=== PATIENT | female | born 1995 | race Hispanic/Latino ===

== ENCOUNTER 2018-01-31 01:08 | Emergency (ER) | payer OTHER, SELFPAY ==
[2018-01-31] MEDS ORDERED: MORPHINE 4 MG/ML SYR ONE ×2 (01:46→02:20)
[2018-01-31] MEDS ORDERED: ONDANSETRON 4 MG/2 ML VIAL ONE ×2 (01:46→02:20)
[2018-01-31] MEDS ORDERED: NA CHLORIDE 0.9% 1,000 ML ONE (01:46)
[2018-01-31] MEDS ORDERED: CEFTRIAXONE/SWI 1gm 1 GM/10 ML SYR ONE (01:56)
[2018-01-31 02:45] LABS: Absolute Lymphocytes (CBC) 2.5 K/uL (0.7-4.9); Absolute Monocytes 1.4 K/uL (0.1-1.3); Absolute Neutrophil 11.1 K/uL (1.8-8.0); Basophils % 0.3 % (0-1.3); Eosinophils % 0.1 % (0-4.4); Hematocrit 40.5 % (36.0-45.0); Lymphocytes % 16.6 % (15.3-44.8); MCH 27.2 pg (27.0-35.0); MCV 84.1 fL (80-100); MPV 8.6 fL (7.6-11.3); Monocytes % 9.2 % (3.3-12.3); RBC Red Blood Cell Count 4.81 M/uL (3.86-4.86)
[2018-01-31 02:48] LABS: Potassium 3.2 mEq/L (3.6-5.0)
[2018-01-31 02:54] LABS: Albumin 4.3 g/dL (3.2-5.5); Bilirubin Direct 0.2 mg/dL (0-0.2); Bilirubin Total 1.3 mg/dL (0.3-1.2); Protein, Total 8.2 g/dL (6.0-8.3)
--- NOTE | 2018-01-31 03:59 | ER ---
Nurse's Notes [facility] Name: Rolando Emerson Age: 22 yrs Sex: Female : 1995 Arrival Date: 01/31/2018 Time: 01:09 Bed 5 Private MD: Diagnosis: Urinary tract infection, site not specified Presentation: 01/31 01:24 Presenting complaint: Patient states: that she has been having abd pain x 2 days along fc with nausea and vomiting. Denies any diarrhea. Transition of care: patient was not received from another setting of care. Onset of symptoms was January 29, 2018. Care prior to arrival: Medication(s) given: Motrin, last at 1600 yesterday Tylenol, last 2 days ago. 01:24 Method Of Arrival: Ambulatory 01:24 Acuity: AKILA 3 01:28 Initial Sepsis Screen: Does the patient meet any 2 criteria? No. Patient's initial fc sepsis screen is negative. Does the patient have a suspected source of infection? No. Patient's initial sepsis screen is negative. 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 - Social history:: Smoking status: Patient/guardian denies using tobacco, Patient uses alcohol, occasionally. Patient/guardian denies using street drugs, IV drugs, The patient lives with family. - Family history:: not pertinent. - Hospitalizations: : No recent hospitalization is reported. Screenin:27 Abuse screen: Denies threats or abuse. Nutritional screening: No deficits noted. fc Tuberculosis screening: No symptoms or risk factors identified. Fall Risk None identified. Assessment: 01:41 General: Appears in no apparent distress. uncomfortable, Behavior is cooperative, tl2 appropriate for age, anxious. Pain: Complains of pain in right lower quadrant Pain does not radiate. Pain currently is 8 out of 10 on a pain scale. Quality of pain is described as sharp, Is intermittent. Pain: Noted to be guarding, moaning. Neuro: Level of Consciousness is awake, alert, obeys commands, Oriented to person, place, time, situation. Cardiovascular: Denies chest pain. Respiratory: Airway is patent Respiratory effort is even, unlabored, Respiratory pattern is regular, symmetrical. GI: Abdomen is non-distended, obese, Abd is soft Abdomen is tender to palpation in right lower quadrant Reports lower abdominal pain, nausea, vomiting, Patient currently denies diarrhea. : Reports blood in urine. Derm: Skin is pink, warm \T\ dry. 01:57 : Urine is tea colored. tl2 02:38 Reassessment: Patient appears in no apparent distress at this time. Patient and/or tl2 family updated on plan of care and expected duration. Pain level reassessed. Pt is resting quietly, states the second dose of pain medication is working. Awaiting CT scan. 03:52 Reassessment: Patient appears in no apparent distress at this time. Patient and/or tl2 family updated on plan of care and expected duration. Pain level reassessed. Awaiting CT results. 04:18 Reassessment: Patient appears in no apparent distress at this time. Patient and/or tl2 family updated on plan of care and expected duration. Pain level reassessed. Pt verbalized understanding of discharge instructions, need for follow up and prescription usage. Vital Signs: 01:26 BP 123 / 74; Pulse 84; Resp 18; Temp 97.8(TE); Pulse Ox 99% on R/A; Weight 113.4 kg (R); Height 5 ft. 1 in. (154.94 cm) (R); Pain 8/10; 02:37 BP 132 / 65; Pulse 88; Resp 18; Pulse Ox 92% on R/A; tl2 03:54 BP 160 / 99; Pulse 95; Resp 22; Temp 98.8(O); Pulse Ox 93% on R/A; tl2 01:26 Body Mass Index 47.24 (113.40 kg, 154.94 cm) ED Course: 01:09 Patient arrived in ED. am2 01:25 Triage completed. 01:27 Arm band placed on Patient placed in an exam room, on a stretcher. 01:28 Aida Meraz RN is Primary Nurse. tl2 01:28 Patient has correct armband on for positive identification. Bed in low position. Call light in reach. 01:30 Franc Boyd MD is Attending Physician. ma2 01:41 Inserted saline lock: 20 gauge in right antecubital area, using aseptic technique. tl2 Blood collected. 01:57 Radiology exam delayed due to lab results not completed at this time. (BUN/Creatinine) jg1 test not completed at this time. 02:00 First set of blood cultures drawn by me. ao 03:15 CT Abd/Pelvis - W/Contrast In Process Unspecified. EDMS 03:54 No provider procedures requiring assistance completed. IV discontinued, intact, tl2 bleeding controlled, No redness/swelling at site. Pressure dressing applied. Administered Medications: 01:53 Drug: Zofran 4 mg Route: IVP; Site: right antecubital; tl2 02:36 Follow up: Response: No adverse reaction; Nausea unchanged tl2 01:54 Drug: NS 0.9% 1000 ml Route: IV; Rate: 1 bolus; Site: right antecubital; tl2 04:09 Follow up: IV Status: Completed infusion; IV Intake: 1000ml tl2 01:54 Drug: morphine 4 mg Route: IVP; Site: right antecubital; tl2 02:36 Follow up: Response: No adverse reaction; Pain is unchanged, physician notified tl2 02:02 Drug: Rocephin 1 grams Route: IV; Rate: bolus; Site: right antecubital; tl2 04:09 Follow up: IV Status: Completed infusion tl2 02:36 Drug: morphine 4 mg Route: IVP; Site: right antecubital; tl2 03:00 Follow up: Response: No adverse reaction; Pain is decreased tl2 02:36 Drug: Zofran 4 mg Route: IVP; Site: right antecubital; tl2 03:00 Follow up: Response: No adverse reaction; Nausea is decreased tl2 Intake: 04:09 IV: 1000ml; Total: 1000ml. tl2 Outcome: 03:54 Discharged to home via wheelchair. tl2 03:54 Condition: stable 03:54 Discharge instructions given to patient, family, Instructed on discharge instructions, follow up and referral plans. medication usage, Demonstrated understanding of instructions, follow-up care, medications, Prescriptions given X 2. 03:59 Discharge ordered by . rosalee 04:19 Patient left the ED. tl2 Addendum: 02/03/2018 07:19 Addendum: Culture Results: Positive urine culture. No further action required. Bacteria i w sensitive to prescribed antibiotic. Signatures: Dispatcher [employer] [email or web address] Mccann [email or web address] Loretta Webster RN RN Debra Hanks RN RN iw Jose Rm RN RN ao Knox, Taylor, RN RN tl2 Marjan De Souza am2 Franc Boyd MD MD ma2 Corrections: (The following items were deleted from the chart) 01/31 04:08 03:54 BP 160 / 99; Pulse 95bpm; Resp 22bpm; Pulse Ox 92% RA; tl2 tl2
--- NOTE | 2018-01-31 03:59 | EDPHYS ---
Physician Documentation [facility] Name: Rolando Emerson Age: 22 yrs Sex: Female : 1995 Arrival Date: 01/31/2018 Time: 01:09 Bed 5 Private MD: ED Physician Franc Boyd HPI: 01/31 01:46 This 22 yrs old Female presents to ER via Ambulatory with complaints of ma2 Vomiting, Abdominal Pain. 01:46 The patient presents to the emergency department with nausea, abdominal pain. Onset: ma2 The symptoms/episode began/occurred gradually, 2 day(s) ago. Associated signs and symptoms: Pertinent positives: abdominal pain, dysuria, hematuria. Severity of symptoms: At their worst the symptoms were severe. The patient has not experienced similar symptoms in the past. 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 - Social history:: Smoking status: Patient/guardian denies using tobacco, Patient uses alcohol, occasionally. Patient/guardian denies using street drugs, IV drugs, The patient lives with family. - Family history:: not pertinent. - Hospitalizations: : No recent hospitalization is reported. ROS: 01:46 Abdomen/GI: Positive for abdominal pain, nausea and vomiting, vomiting, Negative for ma2 rectal pain, rectal bleeding, flatulence. 01:46 All other systems are negative. 03:59 ENT: Negative for injury, pain, and discharge. ma2 Exam: 01:46 Constitutional: This is a well developed, well nourished patient who is awake, alert, ma2 and in no acute distress. Head/Face: Normocephalic, atraumatic. Cardiovascular: Regular rate and rhythm with a normal S1 and S2. No gallops, murmurs, or rubs. Normal PMI, no JVD. No pulse deficits. Respiratory: Lungs have equal breath sounds bilaterally, clear to auscultation and percussion. No rales, rhonchi or wheezes noted. No increased work of breathing, no retractions or nasal flaring. 01:46 Abdomen/GI: Inspection: abdomen appears normal, Palpation: severe abdominal tenderness, in the right upper quadrant. Vital Signs: 01:26 BP 123 / 74; Pulse 84; Resp 18; Temp 97.8(TE); Pulse Ox 99% on R/A; Weight 113.4 kg fc (R); Height 5 ft. 1 in. (154.94 cm) (R); Pain 8/10; 02:37 BP 132 / 65; Pulse 88; Resp 18; Pulse Ox 92% on R/A; tl2 03:54 BP 160 / 99; Pulse 95; Resp 22; Temp 98.8(O); Pulse Ox 93% on R/A; tl2 01:26 Body Mass Index 47.24 (113.40 kg, 154.94 cm) fc MDM: 01:31 Patient medically screened. ma2 01:46 Differential diagnosis: gastritis, cholecystitis, pancreatitis, appendicitis, viral ma2 gastroenteritis, gastroenteritis. 03:55 Data reviewed: vital signs, nurses notes, EMS record, lab test result(s), EKG, ma2 radiologic studies, CT scan. Counseling: I had a detailed discussion with the patient and/or guardian regarding: the historical points, exam findings, and any diagnostic results supporting the discharge/admit diagnosis, the presence of at least one elevated blood pressure reading (>120/80) during this emergency department visit, lab results, radiology results, the need for outpatient follow up. Response to treatment: the patient's symptoms have resolved after treatment. ED course: patient has pyelonephritis, WBC elevated yet no other component of SIRS, she feels fine all symptoms resolved will f/u with pcp in 2 dasy . 01/31 01:45 Order name: Urine Dipstick--Ancillary (enter results) 2 01/31 01:45 Order name: Amylase, Serum; Complete Time: 02:57 [facility] 01/31 01:45 Order name: Basic Metabolic Panel; Complete Time: 02:57 [facility] 01/31 01:45 Order name: CBC with Diff; Complete Time: 02:57 ct01/31 01:45 Order name: Creatinine for Radiology; Complete Time: 02:57 ct01/31 01:45 Order name: Hepatic Function; Complete Time: 02:57 [facility] 01/31 01:45 Order name: Lipase; Complete Time: 02:57 ma01/31 01:45 Order name: Urine Microscopic Only [facility] 01/31 01:46 Order name: CT Abd/Pelvis - W/Contrast [facility] 01/31 01:46 Order name: Blood Culture Adult (2) [facility] 01/31 01:46 Order name: Urine --Ancillary (enter results) [facility] 01/31 04:08 Order name: Urine Culture [facility] 01/31 01:45 Order name: Urine Test (obtain specimen); Complete Time: :54 [facility] 01/31 01:45 Order name: IV Saline Lock; Complete Time: :54 [facility] 01/31 01:46 Order name: Labs collected and sent; Complete Time: [facility] 01/31 01:46 Order name: Urine Dipstick-Ancillary (obtain specimen); Complete Time: : ct Administered Medications: 01:53 Drug: Zofran 4 mg Route: IVP; Site: right antecubital; tl2 02:36 Follow up: Response: No adverse reaction; Nausea unchanged tl2 01:54 Drug: NS 0.9% 1000 ml Route: IV; Rate: 1 bolus; Site: right antecubital; tl2 04:09 Follow up: IV Status: Completed infusion; IV Intake: 1000ml tl2 01:54 Drug: morphine 4 mg Route: IVP; Site: right antecubital; tl2 02:36 Follow up: Response: No adverse reaction; Pain is unchanged, physician notified tl2 02:02 Drug: Rocephin 1 grams Route: IV; Rate: bolus; Site: right antecubital; tl2 04:09 Follow up: IV Status: Completed infusion tl2 02:36 Drug: morphine 4 mg Route: IVP; Site: right antecubital; tl2 03:00 Follow up: Response: No adverse reaction; Pain is decreased tl2 02:36 Drug: Zofran 4 mg Route: IVP; Site: right antecubital; tl2 03:00 Follow up: Response: No adverse reaction; Nausea is decreased tl2 Disposition: 01/31/18 03:59 Discharged to Home. Impression: Urinary tract infection, site not specified. - Condition is Stable. - Discharge Instructions: Pyelonephritis, Adult. - Prescriptions for Levaquin 750 mg Oral Tablet - take 1 tablet by ORAL route once daily for 10 days; 10 tablet. Tylenol- Codeine #3 300-30 mg Oral Tablet - take 2 tablet by ORAL route every 6 hours As needed; 30 tablet. - Medication Reconciliation Form, Thank You Letter, Antibiotic Education, Prescription Opioid Use form. - Work release form (01/31/18 04:25). ao - Follow up: Private Physician; When: Tomorrow; Reason: Continuance of care. - Problem is new. - Symptoms have improved. Signatures: Dispatcher [employer] [facility] Loretta Webster RN RN Aida Meraz RN RN tl2 Franc Boyd MD MD ma2 Jose Rm RN ao Corrections: (The following items were deleted from the chart) 04:19 03:59 01/31/2018 03:59 Discharged to Home. Impression: Urinary tract infection, site tl2 not specified. Condition is Stable. Forms are Medication Reconciliation Form, Thank You Letter, Antibiotic Education, Prescription Opioid Use. Follow up: Private Physician; When: Tomorrow; Reason: Continuance of care. Problem is new. Symptoms have improved. ma2
[2018-01-31 04:04] LABS: Urine Specific Gravity 1.025 (1.005-1.030)
[2018-01-31 04:04] LABS: Urine Blood 3+ (NEG); Urine Glucose NEGATIVE (NEG); Urine Protein 3+ (NEG); Urine Specific Gravity 1.025 (1.005-1.030); Urine pH 5.5 (5.0-7.0)
[2018-01-31 04:06] LABS: Urine RBC TNTC /HPF (NONE SEEN)
[2018-01-31 04:07] LABS: Urine Bacteria <20 /HPF (<20); Urine Culture Reflex Order REFLEXED
--- NOTE | 2018-01-31 11:16 | RAD REPORT ---
EXAM DESCRIPTION: CTAbdomen Pelvis W Contrast - 01/31/2018 3:15 am CLINICAL HISTORY: Abdominal pain. COMPARISON: None. TECHNIQUE: Biphasic CT imaging of the abdomen and pelvis was performed with 100 ml non-ionic IV cont rast. All CT scans are performed using dose optimization technique as appropriate and may include automated exposure control or mA/KV adjustment according to patient size. FINDINGS: The lung bases are clear. The liver demonstrates diffuse fatty infiltration. The spleen, pancreas, adrenal glands and left kidn ey are within normal limits. The right kidney is enlarged with surrounding fat stranding with fat str anding also surrounds the right ureter but shows mild uroepithelial thickening. These findings likely indicate pyelonephritis from ascending urinary tract infection. No perinephric abscess. No bowel obstruction, free air, free fluid or abscess. The appendix is normal. No evidence of signi ficant lymphadenopathy. No suspicious bony findings. IMPRESSION: Right-sided pyelonephritis. Fatty liver.
== END 2018-01-31 04:19 | disposition home or self-care (01) ==
LOC: ER 01:08
DX: N39.0 Urinary tract infection, site not specified (principal)
CPT/HCPCS: 36415; 74177; 80048; 80076; 81003; 81015; 81025; 82150; 83690; 85025; 87040; 87077; 87086; 87088; 87186; 96365; 96366; 96375; 99284; J0696; J2405; J7030; Q9967